=== PATIENT | male | born 1995 | race Caucasian/White ===

== ENCOUNTER 2021-06-19 17:35 | Emergency (ER) | payer OTHER, SELFPAY ==
[~2021-06-19] VITALS: Ht 177.8 cm; Wt 58.3 kg
[~2021-06-19 17:35] MED LIST: AMOX500T PO; ASCO250T20 PO; BIAX500T14 PO; COLA100C5 PO; FERR325T3 PO; IBUP-1114 PO; Iron; MULTCAP PO; PRIL20TA2 PO; TYLE325T5 PO; [UNRECOGNIZED DRUG - OTHER] PO
[2021-06-19] MEDS ORDERED: IRON1TAB2 PO (17:44)
[2021-06-19 18:42] LABS: BASO % 0.5 % (0.0-1.0); EOS # 0.1 10^3/uL (0.0-0.5); HEMATOCRIT 48.9 % (42.0-52.0); LYMPH # 2.3 10^3/uL (1.5-5.0); LYMPH % 28.9 % (24.0-44.0); MEAN CORPUSCULAR HEMOGLOBIN 28.9 pg (27.0-33.0); MEAN CORPUSCULAR HGB CONC 32.7 g/dl (32.0-36.5); MEAN CORPUSCULAR VOLUME 88.4 fl (80.0-96.0); MONO # 0.5 10^3/uL (0.0-0.8); MONO % 5.7 % (2.0-8.0); NEUTROPHILS % 63.4 % (36.0-66.0); PLATELET COUNT, AUTOMATED 271 10^3/uL (150-450); RED BLOOD COUNT 5.53 10^6/uL (4.30-6.10); WHITE BLOOD COUNT 7.9 10^3/uL (4.0-10.0)
[2021-06-19 19:00] LABS: ALBUMIN 4.5 GM/DL (3.2-5.2); BILIRUBIN,DIRECT 0.2 MG/DL (0.0-0.2); BILIRUBIN,TOTAL 0.8 MG/DL (0.2-1.0); TOTAL PROTEIN 8.7 GM/DL (6.4-8.2)
[2021-06-19 19:07] LABS: CK-MB VALUE MASS < 1.0 NG/ML (<3.6); CPK CREATINE PHOSPHOKINASE 118 U/L (39-308); MB/CK RELATIVE INDEX 0.85 (< OR =4)
[2021-06-19] MEDS ORDERED: PANTOPRAZOLE 40MG VIAL (C9113 PER 1) IV ONE (19:15)
[2021-06-19] MEDS ORDERED: ISOVUE-370 76% 100ML VIAL As Ordered ONE (19:18)
[2021-06-19] MEDS ORDERED: KETOROLAC 30 MG/ML 1ML VIAL IV ONE (19:40)
--- NOTE | 2021-06-19 20:15 | REP ---
INDICATION: epigastric pain. COMPARISON: No comparison study. TECHNIQUE: Two views.. FINDINGS: The lungs are well inflated and free of infiltrate. The pleural angles are sharp. The heart size is normal. Pulmonary vasculature is not increased. No significant bony abnormality is seen. IMPRESSION: Negative chest x-ray. <Electronically signed by Daniele Loyd > 06/19/212010
--- NOTE | 2021-06-19 20:38 | REPVR ---
PROCEDURE INFORMATION: Exam: CT Abdomen And Pelvis With Contrast Exam date and time: 06/19/2021 7:30 PM Age: 25 years old Clinical indication: Abdominal pain; Epigastric; Additional info: Epigastric pain TECHNIQUE: Imaging protocol: Computed tomography of the abdomen and pelvis with contrast. Radiation optimization: All CT scans at this facility use at least one of these dose optimization techniques: automated exposure control; mA and/or kV adjustment per patient size (includes targeted exams where dose is matched to clinical indication); or iterative reconstruction. Contrast material: ISOVUE 370; Contrast volume: 100 ml; Contrast route: INTRAVENOUS (IV); COMPARISON: CR Abdomen,Flat Plate KUB 04/15/2015 2:42 PM FINDINGS: Liver: There is a diffuse decrease in hepatic parenchymal density, consistent with steatosis. Gallbladder and bile ducts: Normal. No calcified stones. No ductal dilation. Pancreas: Normal. No ductal dilation. Spleen: Normal. No splenomegaly. Adrenal glands: Normal. No mass. Kidneys and ureters: Normal. No hydronephrosis. Stomach and bowel: Boggy appearance of the distal transverse, left and sigmoid colon with luminal narrowing and a suggestion of mild pericolonic inflammation. Clinical correlation to exclude colitis suggested. No abscess demonstrated. Appendix: No evidence of appendicitis. Intraperitoneal space: Unremarkable. No free air. No significant fluid collection. Vasculature: Unremarkable. No abdominal aortic aneurysm. Lymph nodes: Unremarkable. No enlarged lymph nodes. Urinary bladder: Unremarkable as visualized. Reproductive: Unremarkable as visualized. Bones/joints: Unremarkable. No acute fracture. Soft tissues: Unremarkable. IMPRESSION: 1. There is a diffuse decrease in hepatic parenchymal density, consistent with steatosis. 2. Boggy appearance of the distal transverse, left and sigmoid colon with luminal narrowing and a suggestion of mild pericolonic inflammation. Clinical correlation to exclude colitis suggested. No abscess demonstrated. Electronically signed by: Varun Calderon On 06/19/2021 20:38:26 PM
[2021-06-19] MEDS ORDERED: CIPR-249 PO (21:11)
[2021-06-19] MEDS ORDERED: FLAG500T PO (21:11)
[2021-06-19] MEDS ORDERED: ONDA4TAB6 PO (21:14)
[2021-06-19 21:27] VITALS: BP 133/74
--- NOTE | 2021-06-20 05:40 | ECGEPIP ---
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
== END 2021-06-19 21:48 | disposition home or self-care (01) ==
LOC: M ED 17:35
DX: K52.9 Noninfective gastroenteritis and colitis, unspecified (principal); R10.13 Epigastric pain; R51.9 Headache, unspecified; R00.2 Palpitations; Z79.899 Other long term (current) drug therapy
CPT/HCPCS: 71046; 74177; 80047; 80076; 82550; 82553; 83690; 84484; 85025; 85379; 93005; 96374; 96375; 99284; C9113; J1885; Q9967

== ENCOUNTER 2021-06-25 22:24 | Emergency (ER) | payer SELFPAY ==
[~2021-06-25] VITALS: Ht 177.8 cm; Wt 56.2 kg
[~2021-06-25 22:24] MED LIST changes: +CIPR-249 PO; +FLAG500T PO; +IRON1TAB2 PO; +ONDA4TAB6 PO
[2021-06-26] MEDS ORDERED: NS 1,000 ML IV ONE (07:40)
[2021-06-26 07:48] LABS: BASO % 0.4 % (0.0-1.0); EOS # 0.1 10^3/uL (0.0-0.5); EOS % 0.8 % (0.0-3.0); HEMATOCRIT 47.6 % (42.0-52.0); HEMOGLOBIN 16.1 g/dl (13.5-17.5); LYMPH # 2.1 10^3/uL (1.5-5.0); LYMPH % 25.4 % (24.0-44.0); MEAN CORPUSCULAR HEMOGLOBIN 29.4 pg (27.0-33.0); MEAN CORPUSCULAR HGB CONC 33.8 g/dl (32.0-36.5); MEAN CORPUSCULAR VOLUME 86.9 fl (80.0-96.0); MONO # 0.5 10^3/uL (0.0-0.8); MONO % 6.3 % (2.0-8.0); NEUTROPHILS # 5.6 10^3/uL (1.5-8.5); NEUTROPHILS % 66.6 % (36.0-66.0); PLATELET COUNT, AUTOMATED 288 10^3/uL (150-450); RED BLOOD COUNT 5.48 10^6/uL (4.30-6.10); WHITE BLOOD COUNT 8.4 10^3/uL (4.0-10.0)
[2021-06-26 08:29] LABS: ACETAMINOPHEN LEVEL < 2.0 UG/ML (10.0-30.0); ALBUMIN 4.4 GM/DL (3.2-5.2); ALT/SGPT 16 U/L (12-78); BILIRUBIN,DIRECT 0.2 MG/DL (0.0-0.2); BILIRUBIN,TOTAL 0.6 MG/DL (0.2-1.0); BLOOD UREA NITROGEN 11 MG/DL (7-18); CALCIUM LEVEL 9.5 MG/DL (8.5-10.1); CARBON DIOXIDE LEVEL 25 MEQ/L (21-32); CHLORIDE LEVEL 108 MEQ/L (98-107); CREATININE FOR GFR 0.91 MG/DL (0.70-1.30); GLOMERULAR FILTRATION RATE > 60.0 (>60); GLUCOSE, FASTING 91 MG/DL (70-100); LIPASE 116 U/L (73-393); POTASSIUM SERUM 4.1 MEQ/L (3.5-5.1); SALICYLATE LEVEL < 1.7 MG/DL (5.0-30.0); SODIUM LEVEL 140 MEQ/L (136-145); TOTAL PROTEIN 8.1 GM/DL (6.4-8.2)
[2021-06-26 08:45] VITALS: BP 124/69
--- NOTE | 2021-06-26 14:53 | ECGEPIP ---
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
== END 2021-06-26 09:00 | disposition home or self-care (01) ==
LOC: M ED 22:24
DX: R42 Dizziness and giddiness (principal); T50.995A Adverse effect of other drugs, medicaments and biological substances, initial encounter; K51.90 Ulcerative colitis, unspecified, without complications; F12.10 Cannabis abuse, uncomplicated; Z77.22 Contact with and (suspected) exposure to environmental tobacco smoke (acute) (chronic)

== ENCOUNTER → 2023-02-09 | Outpatient (CLI) | payer SELFPAY, MEDICARE ==
[2023-02-09 12:17] LABS: BASO # 0.1 10^3/uL (0.0-0.2); BASO % 0.8 % (0.0-1.0); EOS # 0.1 10^3/uL (0.0-0.5); EOS % 1.3 % (0.0-3.0); HEMATOCRIT 44.9 % (42.0-52.0); HEMOGLOBIN 14.8 g/dl (13.5-17.5); LYMPH # 1.9 10^3/uL (1.5-5.0); LYMPH % 26.6 % (24.0-44.0); MEAN CORPUSCULAR HEMOGLOBIN 29.4 pg (27.0-33.0); MEAN CORPUSCULAR VOLUME 89.1 fl (80.0-96.0); MONO # 0.5 10^3/uL (0.0-0.8); MONO % 6.7 % (2.0-8.0); NEUTROPHILS # 4.6 10^3/uL (1.5-8.5); PLATELET COUNT, AUTOMATED 251 10^3/uL (150-450); RED BLOOD COUNT 5.04 10^6/uL (4.30-6.10); WHITE BLOOD COUNT 7.2 10^3/uL (4.0-10.0)
[2023-02-09 12:39] LABS: ALBUMIN 4.5 G/DL (3.2-5.2); ALKALINE PHOSPHATASE 69 U/L (46-116); ALT/SGPT 15 U/L (7.0-40); AST/SGOT 19 U/L (<34); BILIRUBIN,TOTAL 0.6 MG/DL (0.3-1.2); BLOOD UREA NITROGEN 8 MG/DL (9-23); CARBON DIOXIDE LEVEL 30 MMOL/L (20-31); CHLORIDE LEVEL 102 MMOL/L (98-107); CREATININE FOR GFR 0.78 MG/DL (0.70-1.30); GLOMERULAR FILTRATION RATE > 60.0 (>60); GLUCOSE, FASTING 73 MG/DL (60-100); SODIUM LEVEL 139 MMOL/L (136-145); TOTAL PROTEIN 7.7 G/DL (5.7-8.2)
[2023-02-09 12:42] LABS: FREE T4 1.06 NG/DL (0.89-1.76); THYROID STIMULATING HORMONE 1.256 uIU/ML (0.55-4.78)
== END ==
LOC: M WUC 08:06
PROVIDERS: ATTEND Student in an Organized Health Care Education/Training Program
DX: R10.30 Lower abdominal pain, unspecified (principal)

== ENCOUNTER → 2023-05-23 | Day surgery (SDC) | payer OTHER ==
[~2023-05-23] VITALS: Ht 177.8 cm; Wt 54.4 kg
[~2023-05-23] MED LIST changes: +NS 1,000 ML IV ONE; +TUMS500C PO
[2023-05-23 10:20] VITALS: TEMP 97.2
[2023-05-23 11:55] VITALS: BP 100/50; O2SAT 100
== END | disposition home or self-care (01) ==
LOC: M OPP 09:59
PROVIDERS: ATTEND Internal Medicine Gastroenterology
DX: R19.7 Diarrhea, unspecified (principal); K29.70 Gastritis, unspecified, without bleeding; R12 Heartburn; R07.9 Chest pain, unspecified; Z92.89 Personal history of other medical treatment; Z79.899 Other long term (current) drug therapy

== ENCOUNTER 2024-02-14 23:31 | Emergency (ER) | payer OTHER ==
[~2024-02-14] VITALS: Ht 177.8 cm; Wt 53.6 kg
[2024-02-14 23:31] VITALS: TEMP 97.7
[~2024-02-14 23:31] MED LIST changes: -NS 1,000 ML IV ONE
[2024-02-15 00:32] LABS: LIPASE 26 U/L (12-53)
[2024-02-15 00:35] LABS: ALBUMIN 4.8 G/DL (3.2-5.2); ALKALINE PHOSPHATASE 78 U/L (46-116); ALT/SGPT 15 U/L (7.0-40); AST/SGOT 15 U/L (<34); BILIRUBIN,DIRECT 0.5 MG/DL (<0.4); BILIRUBIN,TOTAL 1.4 MG/DL (0.3-1.2); BLOOD UREA NITROGEN 13 MG/DL (9-23); CARBON DIOXIDE LEVEL 26 MMOL/L (20-31); CHLORIDE LEVEL 102 MMOL/L (98-107); CREATININE FOR GFR 0.83 MG/DL (0.70-1.30); GLOMERULAR FILTRATION RATE > 60.0 (>60); GLUCOSE, FASTING 121 MG/DL (60-100); POTASSIUM SERUM 4.1 MMOL/L (3.5-5.1); SODIUM LEVEL 135 MMOL/L (136-145); TOTAL PROTEIN 8.4 G/DL (5.7-8.2)
[2024-02-15] MEDS: NS 1,000 ML IV ONE (00:47)
[2024-02-15] MEDS: ONDANSETRON 4MG 2ML VIAL IV ONE (00:48)
[2024-02-15] MEDS: KETOROLAC 30 MG/ML 1ML VIAL IV ONE (00:48)
[2024-02-15 00:56] LABS: BASO % 0.2 % (0.0-1.0); EOS % 0.2 % (0.0-3.0); HEMATOCRIT 46.9 % (42.0-52.0); HEMOGLOBIN 16.1 g/dl (13.5-17.5); LYMPH # 0.8 10^3/uL (1.5-5.0); LYMPH % 6.4 % (24.0-44.0); MEAN CORPUSCULAR HEMOGLOBIN 29.7 pg (27.0-33.0); MEAN CORPUSCULAR HGB CONC 34.3 g/dl (32.0-36.5); MEAN CORPUSCULAR VOLUME 86.4 fl (80.0-96.0); MONO # 0.6 10^3/uL (0.0-0.8); MONO % 4.6 % (2.0-8.0); NEUTROPHILS # 10.9 10^3/uL (1.5-8.5); NEUTROPHILS % 88.2 % (36.0-66.0); PLATELET COUNT, AUTOMATED 278 10^3/uL (150-450); RED BLOOD COUNT 5.43 10^6/uL (4.30-6.10); WHITE BLOOD COUNT 12.4 10^3/uL (4.0-10.0)
[2024-02-15 02:36] VITALS: BP 98/55; O2SAT 98
[2024-02-15] MEDS ORDERED: ONDA4TAB6 PO (02:38)
[2024-02-15] MEDS: LOPERAMIDE 2 MG CAPLET PO ONE (02:56)
== END 2024-02-15 03:03 | disposition home or self-care (01) ==
LOC: M ED 23:31
DX: A08.0 Rotaviral enteritis (principal); K58.9 Irritable bowel syndrome, unspecified; F12.10 Cannabis abuse, uncomplicated; Z79.83 Long term (current) use of bisphosphonates; Z79.899 Other long term (current) drug therapy
CPT/HCPCS: 80048; 80076; 83690; 85025; 87507; 96361; 96374; 99283; J1885; J2405

== ENCOUNTER 2025-02-01 05:22 | Emergency (ER) | payer OTHER, SELFPAY ==
[~2025-02-01] VITALS: Ht 177.8 cm; Wt 57.0 kg
[~2025-02-01 05:22] MED LIST changes: +ONDA-282 PO; -ONDA4TAB6 PO
[2025-02-01 08:03] VITALS: BP 116/71; TEMP 98.1; O2SAT 98
== END 2025-02-01 08:09 | disposition home or self-care (01) ==
LOC: M ED 05:22
DX: S60.031A Contusion of right middle finger without damage to nail, initial encounter (principal); W22.8XXA Striking against or struck by other objects, initial encounter; Y92.89 Other specified places as the place of occurrence of the external cause; Y93.89 Activity, other specified; Y99.0 Civilian activity done for income or pay; Z79.83 Long term (current) use of bisphosphonates; Z79.899 Other long term (current) drug therapy

== ENCOUNTER 2025-08-22 11:03 | Emergency (ER) | payer BC, OTHER ==
[~2025-08-22] VITALS: Ht 177.8 cm; Wt 54.7 kg
[2025-08-22] MEDS: NS (Normal Saline) 0.9% 1,000 ML IV ONE (15:29)
[2025-08-22 15:41] LABS: BASO # 0.1 10^3/uL (0.0-0.2); BASO % 0.5 % (0.0-1.0); EOS # 0.0 10^3/uL (0.0-0.5); EOS % 0.3 % (0.0-3.0); LYMPH # 1.7 10^3/uL (1.5-5.0); LYMPH % 15.8 % (24.0-44.0); MONO # 0.4 10^3/uL (0.0-0.8); MONO % 3.9 % (2.0-8.0); NEUTROPHILS # 8.7 10^3/uL (1.5-8.5); NEUTROPHILS % 79.2 % (36.0-66.0); PLATELET COUNT, AUTOMATED 280 10^3/uL (150-450)
[2025-08-22 16:08] LABS: CK-MB VALUE MASS < 1.0 NG/ML (<3.6)
[2025-08-22 16:11] LABS: CALCIUM LEVEL 9.6 MG/DL (8.5-10.1); CARBON DIOXIDE LEVEL 25 MMOL/L (20-31); CHLORIDE LEVEL 108 MMOL/L (98-107); CREATININE FOR GFR 0.71 MG/DL (0.70-1.30); GLOMERULAR FILTRATION RATE > 90.0 (>60); MAGNESIUM LEVEL 2.1 MG/DL (1.8-2.4); POTASSIUM SERUM 4.1 MMOL/L (3.5-5.1); SODIUM LEVEL 143 MMOL/L (136-145)
[2025-08-22 16:12] LABS: FREE T4 1.47 NG/DL (0.89-1.76)
[2025-08-22 16:18] LABS: CPK CREATINE PHOSPHOKINASE 93 U/L (46-171)
[2025-08-22 16:30] VITALS: BP 107/64; TEMP 98.1; O2SAT 100
== END 2025-08-22 16:43 | disposition home or self-care (01) ==
LOC: M ED 11:03
DX: R07.9 Chest pain, unspecified (principal); R00.2 Palpitations; F12.10 Cannabis abuse, uncomplicated; R00.0 Tachycardia, unspecified; I51.7 Cardiomegaly